=== PATIENT | female | born 1930 | race African-American/Black ===

== ENCOUNTER 2017-03-19 13:01 | Emergency (ER) | payer OTHER ==
[~2017-03-19] VITALS: Ht 160 cm; Wt 54.4 kg
[2017-03-19 14:20] VITALS: BP 146/71
== END 2017-03-19 15:47 | disposition home or self-care (01) ==
LOC: ER 13:11
DX: S09.90XA Unspecified injury of head, initial encounter (principal); R51 Headache; Z90.710 Acquired absence of both cervix and uterus; Z90.89 Acquired absence of other organs; W10.9XXA Fall (on) (from) unspecified stairs and steps, initial encounter; Y93.89 Activity, other specified; Y99.8 Other external cause status; Y92.89 Other specified places as the place of occurrence of the external cause
CPT/HCPCS: 70450

== ENCOUNTER 2019-01-20 07:33 | Inpatient (IN) | payer BC, OTHER ==
[~2019-01-20] VITALS: Ht 167.6 cm; Wt 21.6 kg
[2019-01-20] MEDS ORDERED: ONDANSETRON HCL 4 MG/2 ML VIAL IV ONE (08:00)
[2019-01-20] MEDS ORDERED: MORPHINE SULFATE 4 MG/ML SYR/VIAL IV ONE (08:00)
[2019-01-20] MEDS ORDERED: SODIUM CHLORIDE 0.9% 1,000 ML IV ONE (08:33)
[2019-01-20 08:42] LABS: Basophils # (auto) 0.1 uL; Basophils % (auto) 2.7 % (0.0-2.0); Eosinophils # (auto) 0 uL; Eosinophils % (auto) 0.4 % (0.0-7.0); Hematocrit 38.1 % (36.0-46.0); Hemoglobin 13.2 g/dL (12.2-16.2); Lymphocytes % (auto) 19.7 % (10.0-50.0); Mean Corpuscular Hemoglobin 33.5 pg (28.0-32.0); Mean Corpuscular Hgb Conc. 34.6 g/dL (32.0-36.0); Monocytes # (auto) 0.9 uL; Monocytes % (auto) 17.5 % (0.0-12.0); Neutrophils % (auto) 59.7 % (37.0-80.0); Nucleated Red Blood Cells % 0.1 %; Platelet Count (auto) 119 10^3/uL (140-450); Red Blood Cells 3.93 10^6/uL (4.0-5.20); Red Cell Distribution Width 13.9 % (11.8-14.3)
[2019-01-20 08:58] LABS: INR 1.16 (0.9-1.15); Partial Thromboplastin Time 28.8 sec (23.64-32.05)
[2019-01-20] MEDS ORDERED: LEVOFLOXACIN 500MG 100 ML IV ONE (09:30)
[2019-01-20 09:46] LABS: Albumin 3.1 g/dL (3.4-5.0); Anion Gap 10 (5-15); BUN/Creatinine Ratio 14.6; Blood Urea Nitrogen 13 mg/dL (7-18); Calcium 8.6 mg/dL (8.5-10.1); Carbon Dioxide 22 mmol/L (21-32); Chloride 108 mmol/L (98-107); GFR African American 77 mL/min; GFR Non-African American 64 mL/min; Glucose 99 mg/dL (74-106); Potassium 3.4 mmol/L (3.5-5.1); Sodium 140 mmol/L (136-145)
[2019-01-20 09:51] LABS: Alanine Aminotransferase 51 U/L (13-56); Alkaline Phosphatase 145 U/L (45-117); Aspartate Aminotransferase 63 U/L (15-37); Bilirubin, Total 0.7 mg/dL (0.2-1.0); Total Protein 7.5 g/dL (6.4-8.2)
[2019-01-20] MEDS ORDERED: IPRATROPIUM BROM 0.5 MG/2.5ML INH SOL NEB PRN (11:00)
[2019-01-20] MEDS ORDERED: ONDANSETRON HCL 4 MG/2 ML VIAL IV PRN (11:00)
[2019-01-20] MEDS ORDERED: ACETAMINOPHEN 500 MG TAB PO PRN (11:00)
[2019-01-20] MEDS ORDERED: AZITHROMYCIN 250 MG TAB PO ONE (11:00)
[2019-01-20] MEDS ORDERED: MORPHINE SULF INJ 2 MG/ML SYRINGE 1ML IV PRN ×2 (11:00)
[2019-01-20] MEDS ORDERED: NITROGLYCERIN 0.4 MG SL TAB SL PRN (11:00)
[2019-01-20] MEDS ORDERED: ALBUTEROL SULF 2.5 MG/0.5ML(0.5%) NEB SOLN NEB PRN (11:00)
[2019-01-20] MEDS ORDERED: cefTRIAXone 1GM/50ML D5W 50 ML IV ONE (11:00)
--- NOTE | 2019-01-20 13:00 | NUR ---
MS admit from [facility] admitted to tele/MS after SBAR received. Patient oriented to PATRIA COOPER RN primary RN, unit, room, bed, and unit policies regarding patient care and visiting hours. Family at bedside. Patient weighed by bedscale and encouraged to call if they need something. All questions and concerns addressed, patient verbalized understanding. Patient denies any pain at this time.
[2019-01-20 15:02] VITALS: BP 154/72
--- NOTE | 2019-01-20 15:41 | NUR ---
Elliott Contacted Ortho regarding order for arm sling. They said the butcher assistant is not in today but they are the ones that usually put them on. He stated that the butcher assistant will be in tomorrow. Patient is lying in bed with arm supported on a pillow and denies any pain at this time.
[2019-01-20 15:58] VITALS: BP 154/72
[2019-01-20] MEDS: HYDROcodone-ACET 5/325MG TAB PO PRN ×2 (16:32→22:20)
[2019-01-20 17:07] VITALS: BP 134/74
--- NOTE | 2019-01-20 18:35 | NUR ---
RT NOTE PT WAS SEEN BY RT FOR PRN HHN TX. PT STATES SHE HAS NO SOB AND NO TREATMENT NEEDED AT THIS TIME. HR 83, RR 16, BS CLEAR, POX 93% ON ROOM AIR. NO PRN TREATMENT INDICATED AT THIS TIME. PT AWARE TO CALL IF TX NEEDED Addendum: 01/20/19 at 1907 by Lisbet Soria RT Amended: Links added.
--- NOTE | 2019-01-20 20:00 | NUR ---
Opening Shift Note Assumed care of patient, awake and alert. No S/S of distress/SOB but patient states pain is 7/10. Patient will be medicated per pain protocol when available. Instructed on POC and to call for assist PRN, will continue to monitor for changes Q1hr and PRN.
[2019-01-20 21:55] VITALS: BP 135/68
[2019-01-21 04:52] VITALS: BP 144/77
[2019-01-21 05:31] LABS: Basophils # (auto) 0 uL; Basophils % (auto) 0.6 % (0.0-2.0); Eosinophils # (auto) 0.1 uL; Eosinophils % (auto) 2.1 % (0.0-7.0); Hematocrit 36.5 % (36.0-46.0); Hemoglobin 12.4 g/dL (12.2-16.2); Lymphocytes # (auto) 1.9 uL; Lymphocytes % (auto) 35.2 % (10.0-50.0); Mean Corpuscular Hemoglobin 33.2 pg (28.0-32.0); Mean Corpuscular Hgb Conc. 33.8 g/dL (32.0-36.0); Mean Corpuscular Volume 98.1 fL (80.0-100.0); Monocytes # (auto) 0.9 uL; Monocytes % (auto) 15.7 % (0.0-12.0); Neutrophils # (auto) 2.5 uL; Neutrophils % (auto) 46.4 % (37.0-80.0); Nucleated Red Blood Cells % 0.1 %; Platelet Count (auto) 112 10^3/uL (140-450); Red Blood Cells 3.72 10^6/uL (4.0-5.20); Red Cell Distribution Width 14.2 % (11.8-14.3); White Blood Cell 5.5 10^3/uL (4.4-10.8)
[2019-01-21 05:55] LABS: Albumin 2.6 g/dL (3.4-5.0); BUN/Creatinine Ratio 15.3; Potassium 3.7 mmol/L (3.5-5.1)
[2019-01-21 06:00] LABS: Bilirubin, Total 0.5 mg/dL (0.2-1.0); Total Protein 6.9 g/dL (6.4-8.2)
--- NOTE | 2019-01-21 07:51 | NUR ---
RECEIVED REPORT AND ASSUMED CARE OF PT. A/OX4. DENIED S/S ACUTE DISTRESS. UPDATE PT WITH POC. BED AT LOWEST POSITION. CALL LIGHT AND BELONGINGS WITHIN REACH. WILL CONT TO MONITOR.
[2019-01-21] MEDS: FAMOTIDINE 20 MG TAB PO SCH (08:29)
[2019-01-21] MEDS: HYDROcodone-ACET 5/325MG TAB PO PRN ×2 (08:30→15:31)
[2019-01-21 09:00] VITALS: BP 147/75
[2019-01-21] MEDS ORDERED: cefTRIAXone 1GM/50ML D5W 50 ML IV SCH (09:00)
--- NOTE | 2019-01-21 09:38 | NUR ---
Respiratory note: PT ASSESSED FOR PRN MED NEB TX, NO TX DESIRED NOR INDICATED AT THIS TIME. NO C/O SOB OR DIFF BREATHING. NO SIGNS OF DISTRESS NOTED. HR 63 RR 20 SPO2 99% ON RA, BREATH SOUNDS ARE CLEAR T/O POSTERIORLY. PT AWAKE/ALERT SITTING IN BED. PT AND RN AWARE TO HAVE RT PAGE DIF NEEDED.
[2019-01-21] MEDS ORDERED: AZITHROMYCIN 250 MG TAB PO SCH (10:00)
[2019-01-21 13:00] VITALS: BP 139/82
--- NOTE | 2019-01-21 13:45 | NUR ---
EEG COMPLETED AT BEDSIDE. RN DIDIAN AWARE.
[2019-01-21] MEDS ORDERED: hydrALAZINE HCL 20 MG/ML VL IV PRN (14:15)
[2019-01-21] MEDS ORDERED: LORazepam 2MG/ML-1ML VIAL IV ONE (14:45)
[2019-01-21 16:13] LABS: Urine Bacteria NONE SEEN /hpf (None Seen); Urine Blood Negative /uL (Negative); Urine Specific Gravity 1.016 (1.001-1.035); Urine WBC 1 /hpf (0 - 5)
[2019-01-21 16:42] VITALS: BP 139/78
--- NOTE | 2019-01-21 19:00 | NUR ---
PT RESTING IN BED. NO S/S ACUTE DISTRESS NOTED. ENDORSED CARE TO NIGHT NURSE.
--- NOTE | 2019-01-21 19:00 | NUR ---
Respiratory note: PT ASSESSED FOR PRN MED NEB TX. HR 82, RR 16, SPO2 97% ON 1L NC. NO SIGNS OF ANY RESPIRATORY DISTRESS NOTED. ADVISED PT TO CALL IF TX IS NEEDED. RT NAME AND PAGER NUMBER WRITTEN ON PT'S BOARD.
--- NOTE | 2019-01-21 20:00 | NUR ---
Opening Shift Note Assumed care of patient, awake and alert. No S/S of distress/SOB or pain. Instructed on POC and to call for assist PRN, will continue to monitor for changes Q1hr and PRN.
[2019-01-21 22:00] VITALS: BP 144/77
[2019-01-22 05:00] VITALS: BP 132/70
[2019-01-22] MEDS: HYDROcodone-ACET 5/325MG TAB PO PRN ×2 (06:23→14:36)
--- NOTE | 2019-01-22 08:05 | NUR ---
Morning note Assumed care of patient, awake and alert sitting up in bed. Respiration even and unlabored. No S/S of distress noted. Discussed POC and to call for assistance as needed. Fall precautions in place. Bed in lowest position, breaks locked, side rails up x2, call light with in reach. Will continue to monitor Q1hr and PRN.
[2019-01-22 09:00] VITALS: BP 145/64
--- NOTE | 2019-01-22 09:55 | NUR ---
Respiratory note: Assessed pt for prn medneb tx. HR 82, RR 14, POX 98% on room air. Breath sounds clear/diminished throughout. No s/s of respiratory distress noted. Medneb tx not indicated at this time. Advised pt to call for RT if needed.
[2019-01-22] MEDS: FAMOTIDINE 20 MG TAB PO SCH (10:47)
[2019-01-22 13:00] VITALS: BP 122/66
--- NOTE | 2019-01-22 13:00 | NUR ---
PATIENT STATED SHE DOES NOT HAVE BLOOD PRESSURE MEDICATIONS AT HOME AND DOES NOT HAVE HIGH BLOOD PRESSURE.
[2019-01-22] MEDS ORDERED: amLODIPine BESYLATE 5 MG TAB PO ONE (14:30)
--- NOTE | 2019-01-22 14:30 | NUR ---
Patient stated she does not take any medications at home.
--- NOTE | 2019-01-22 15:30 | NUR ---
DOCTOR BARBER AT BEDSIDE.
[2019-01-22 16:46] VITALS: BP 133/62
--- NOTE | 2019-01-22 17:06 | NUR ---
Referral for home health will be sent on 01.23.19. Patient is out of area for health plan. Unable to secure local home health at this time.
--- NOTE | 2019-01-22 18:06 | NUR ---
PT ASSESSED FOR PRN MED NEB TX. SPO2 98% ON RA, HR 74. PT DENIES ANY RESPIRATORY DISTRESS. NO TX INDICATED. WILL CONTINUE TO MONITOR.
--- NOTE | 2019-01-22 19:09 | NUR ---
END OF SHIFT REPORT PATIENT RESTING IN BED,AWAKE AND ALERT. RESPIRATIONS ARE EVEN AND UNLABORED. NO S/S OF DISTRESS NOTED. FALL PRECAUTIONS IN PLACE. BED IN LOWEST POSITION, BREAKS LOCKED SIDE RAILS UP X2 BED ALARM GENERAL COUNSELOR LIGHT WITH IN REACH.. CARE ENDORSED TO NOC JATINDER ALBA.
--- NOTE | 2019-01-22 19:20 | NUR ---
OPENING SHIFT NOTE Assumed care of patient, awake and alert sitting up in bed. Respiration even and unlabored. No S/S of distress noted. Denies pain at this moment. Discussed POC and to call for assistance as needed. Patient verbalizes understanding. Bed in lowest position, breaks locked, bed alarm on, side rails up x2, call light with in reach. Will continue to monitor Q1hr and PRN.
--- NOTE | 2019-01-22 20:00 | NUR ---
PATIENT AMBULATES TO RESTROOM WITH STANDBY ASSIST. GAIT EVEN AND STEADY. PATIENT ENCOURAGED TO KEEP CALLING FOR ASSISTANCE WITH AMBULATION. PATIENT VERBALIZES UNDERSTANDING.
[2019-01-22 22:00] VITALS: BP 121/73
--- NOTE | 2019-01-23 00:10 | NUR ---
PAIN PATIENT REPORTS PAIN 5/10 LOCATED ON LEFT SHOULDER. WILL ASSESS AND MEDICATE PER ORDER.
[2019-01-23] MEDS: HYDROcodone-ACET 5/325MG TAB PO PRN ×2 (00:20→09:06)
[2019-01-23 05:00] VITALS: BP_SYST 114; BP_SYST 121; BP_DIAS 71; BP_DIAS 83
[2019-01-23 06:13] LABS: Basophils # (auto) 0 uL; Basophils % (auto) 0.4 % (0.0-2.0); Eosinophils # (auto) 0.2 uL; Eosinophils % (auto) 3.3 % (0.0-7.0); Hematocrit 36.4 % (36.0-46.0); Hemoglobin 12.4 g/dL (12.2-16.2); Lymphocytes # (auto) 1.8 uL; Lymphocytes % (auto) 36.2 % (10.0-50.0); Mean Corpuscular Hemoglobin 33.3 pg (28.0-32.0); Mean Corpuscular Hgb Conc. 34.1 g/dL (32.0-36.0); Mean Corpuscular Volume 97.7 fL (80.0-100.0); Monocytes # (auto) 0.7 uL; Monocytes % (auto) 12.9 % (0.0-12.0); Neutrophils # (auto) 2.4 uL; Neutrophils % (auto) 47.2 % (37.0-80.0); Nucleated Red Blood Cells % 0.2 %; Platelet Count (auto) 115 10^3/uL (140-450); Red Blood Cells 3.73 10^6/uL (4.0-5.20); White Blood Cell 5.1 10^3/uL (4.4-10.8)
[2019-01-23 06:27] LABS: BUN/Creatinine Ratio 19.7; Calcium 8.1 mg/dL (8.5-10.1); Magnesium 1.9 mg/dL (1.6-2.6); Potassium 3.9 mmol/L (3.5-5.1)
--- NOTE | 2019-01-23 07:05 | NUR ---
PT. ASSESSED FOR PRN. MN.TX. , NO RESP. DISTRESS OR SOB NOTED AT THIS TIME. BS. ARE CLEAR, HR 64,RR 18, SPO2 99% ON RA. PT. DENIES SOB, TX. NOT INDICATED AT THIS TIME, PT. INSTRUCTED TO CALL IF NEEDED, NO TX. GIVEN.
--- NOTE | 2019-01-23 07:39 | NUR ---
CARE ENDORSED TO DAY SHIFT WES TOBIAS
--- NOTE | 2019-01-23 08:00 | NUR ---
Morning note Assumed care of patient, awake and alert sitting up in bed. Respiration even and unlabored. No S/S of distress noted. Discussed POC and to call for assistance as needed. Fall precautions in place. Bed in lowest position, breaks locked, side rails up x2, call light with in reach,bed alarm on. Will continue to monitor Q1hr and PRN.
[2019-01-23] MEDS: FAMOTIDINE 20 MG TAB PO SCH (08:57)
[2019-01-23 09:00] VITALS: BP_SYST 125; BP_SYST 134; BP_DIAS 64; BP_DIAS 72
[2019-01-23] MEDS ORDERED: amLODIPine BESYLATE 5 MG TAB PO SCH (10:00)
[2019-01-23] MEDS ORDERED: MAGNESIUM SULFATE 1GM/100ML 100 ML IV ONE (12:00)
--- NOTE | 2019-01-23 12:17 | NUR ---
Nutrition Assessment Notes please see attached link for complete assessment Est. Needs based on BW (61 kg): 4927-0662 kcal (25-30 kcal/kgBW), 61-73 gms pro (1.0-1.2 gms/kgBW). Will continue to monitor pertinent labs and reassess nutrient need prn Addendum: 01/23/19 at [address] Amended: Links added.
--- NOTE | 2019-01-23 12:42 | NUR ---
Assessment Pt is an 88 yr old alert and oriented female. Pt stated that prior to admit, she lived at home alone with some family close by. Pt was ambulatory, and independent with ADL's, cooking, cleaning. Pt stated that she has been getting a little weaker and uses a heightened toilet seat to get on and off better but she fell off of it and broke her collar bone. Pt stated that she feels safe to d/c home and that she has some of her children offering to come stay with her if she needs the extra help. Per CM, pt is being connected with for PT. Pt receives income and is not interested in an advanced directive. Pt's daughter will transport home upon d/c. Addendum: 01/23/19 at 1247 by MATTHEW MIR Amended: Links added.
--- NOTE | 2019-01-23 13:40 | NUR ---
PAGED DOCTOR , REGARDING HOME HEALTH. AWAITING CALL BACK
--- NOTE | 2019-01-23 14:00 | NUR ---
Patients insurance saying home health is out of area of coverage. Patient lives in [place] and PCP is in [place]. Per Insurance they only cover a 30 mile radius from patients PCP. Will inform case liner and social and political studies professor.
--- NOTE | 2019-01-23 14:00 | NUR ---
Spoke with Glory from [facility] number [phone]. Per Glory patient pcp is located in [place] and patient lives in [place]. Per insurance they only cover a 30 mile radius and will not cover patient home health services.
--- NOTE | 2019-01-23 14:08 | NUR ---
SECOND PAGE OUT TO DOCTOR DE ANDA, REGARDING HOME HEALTH. AWAITING CALL BACK
--- NOTE | 2019-01-23 14:30 | NUR ---
Spoke with nancy social services assistant and informed her of patients insurance and home health. Per Nancy she will call insurance company to see if we can still set up for home health.
--- NOTE | 2019-01-23 15:12 | NUR ---
Paged doctor Rendon regarding home health.
--- NOTE | 2019-01-23 15:30 | NUR ---
Spoke with Dr. Rendon about patient's discharge and that [employer] are unable to set up home health. (see SS notes). Dr. Rendon said to have patient follow up with PCP and get referral as out patient for home health and to discharge patient home today.
--- NOTE | 2019-01-23 16:00 | NUR ---
Discharge planning per consult patient has orders to dc home with home health. Placed a call to [email or web address], spoke with Imelda and was provided with 20 home health vendors for [place] and [facility]. I advised that patient is in [place], [place]; she advised patient was out of area. Spoke with Lili from [facility] who also advised patient was out of area. Spoke to [employer] Glory Lazcano at [phone], and advised that patient is out of area and we are unable to obtain an accepting home health at this time and that patient is ambulating 500ft as of 01.22.19. He advised that they will follow patient upon discharge to ensure her safety and follow up with her PCP who is in [place], [place]. Dr. Jordan was advised that no home health was obtained prior to discharge, per Charge nurse . Patient was advised to follow up with PCP for out patient PT, and home health services in addition to consider changing her medical group to a local provider to prevent delays in care services in the future. Nurse Harrison was advised of dc plan.
--- NOTE | 2019-01-23 16:00 | NUR ---
Doctor Faust informed that patient was unable to obtain home health. Per Doctor Winchester patient okay to be discharged. chips screen tender [place] aware and spoke with doctor Winchester.
[2019-01-23 17:00] VITALS: BP 133/72
--- NOTE | 2019-01-23 18:00 | NUR ---
PATIENT REQUESTED FOR PRESCRIPTION OF NORCO, PAGED MANAGER STATISTICAL PROGRAMMING HOSPITALIST. DOCTOR LEYDI CALLED BACK. MD AWARE THAT PATIENT REQUESTED PAIN MEDICATIONS FOR HOME . PER MD COULD NOT PRESCRIBE [facility]CO PRESCRIPTION BUT RECOMMENDED PATIENT TO TAKE OVER THE COUNTER MEDICATIONS OF IBUPROFEN AND TYLENOL FOR PAIN AND PATIENT WILL HAVE TO ASK PRIMARY CARE PROVIDER FOR PRESCRIPTION.
--- NOTE | 2019-01-23 18:10 | NUR ---
PATIENT DAUGHTER TEE STATED SHE IS GOING HOME WITH PATIENT AND STAYING THERE FOR THE WEEKEND. PER TEE SHE IS GOING TO HELP MOTHER AT HOME.
--- NOTE | 2019-01-23 18:35 | NUR ---
Discharge instructions given as ordered. Encourage to follow up with PMD as instructed. All questions and concerns addressed. Patient verbalized understanding. Medication reconciliation form completed and copy given to patient. No home medications held in Pharmacy and none returned to patient, and no needed vaccines given. IV removed with catheter intact, pressure dressing applied. Patient taken to vehicle via wheelchair with all personal belongings, accompanied by staff and family member. No distress noted at time of departure.
[2019-01-23 21:56] VITALS: BP 133/72
== END 2019-01-23 18:35 | disposition home health service (06) | DRG 563 ==
LOC: ER 07:33 → OVERFLOW 07:34 → WEST WING 12:38
PROVIDERS: ADMIT Nurse Practitioner Acute Care; ATTEND Internal Medicine
DX: S42.032A Displaced fracture of lateral end of left clavicle, initial encounter for closed fracture (principal); S06.0X9A Concussion with loss of consciousness of unspecified duration, initial encounter; E87.6 Hypokalemia; M19.90 Unspecified osteoarthritis, unspecified site; M43.12 Spondylolisthesis, cervical region; M48.02 Spinal stenosis, cervical region; R29.2 Abnormal reflex; W01.0XXA Fall on same level from slipping, tripping and stumbling without subsequent striking against object, initial encounter; M43.17 Spondylolisthesis, lumbosacral region; E05.90 Thyrotoxicosis, unspecified without thyrotoxic crisis or storm; M85.80 Other specified disorders of bone density and structure, unspecified site; S70.02XA Contusion of left hip, initial encounter; M75.52 Bursitis of left shoulder; M81.0 Age-related osteoporosis without current pathological fracture; I10 Essential (primary) hypertension; Y93.89 Activity, other specified; Y92.89 Other specified places as the place of occurrence of the external cause; Y99.8 Other external cause status; Z83.3 Family history of diabetes mellitus; Z79.899 Other long term (current) drug therapy
CPT/HCPCS: 36415; 70450; 70551; 71045; 72125; 72192; 73030; 80048; 80053; 80061; 81001; 83735; 84443; 84484; 85025; 85610; 85730; 95819; 96361; 96365; 96367; 96375; 97116; 97163; 97530; G0378; J0696; J1956; J2405